=== PATIENT | male | born 2000 | race Caucasian/White ===

== ENCOUNTER 2025-02-26 06:06 | Day surgery (SDC) | payer OTHER ==
[2025-02-19 11:40] LABS: MEAN PLATELET VOLUME 8.1 FL (7.4-10.4); PRE OP HEMATOCRIT 48.6 % (42.0-52.0); PRE OP HEMOGLOBIN 17.0 g/dL (14.0-17.9); PRE OP PLATELET COUNT 251 X10'3 (140-440); PRE OP WHITE BLOOD COUNT 7.7 10'3 (4.8-10.8); RED CELL DISTRIBUTION WIDTH 12.8 % (11.5-14.5)
[2025-02-19 11:57] LABS: CREATININE 0.99 MG/DL (0.60-1.10); PRE OP ALT 72 U/L (30-65); PRE OP ANION GAP 9 (8-16); PRE OP AST 29 U/L (10-37); PRE OP GLUCOSE 101 MG/DL (70-104); PRE OP POTASSIUM 4.0 MMOL/L (3.4-5.1); PRE OP SODIUM 141 MMOL/L (135-145); TOTAL CARBON DIOXIDE 27.6 MMOL/L (24-32); eGFR > 90 ML/MIN
[2025-02-19 12:06] LABS: PRE OP BILIRUB, TOTAL 0.3 MG/DL (0.0-1.0)
[~2025-02-26] VITALS: Ht 182.9 cm; Wt 98.8 kg
[2025-02-26] VITALS (9 sets, daily range): BP systolic 135–157; BP diastolic 50–103; PULSE 74–98; RESP 12–23; TEMP 98.3; O2SAT 96–98
[~2025-02-26 06:06] MED LIST: NO HOME MEDS
[2025-02-26] MEDS: ringers solution, lacted 1,000 ML IV SCH (06:25)
[2025-02-26] MEDS: ceFAZolin 2gm/dext,iso 50mL 50 ML IV ONE (06:26)
[2025-02-26] MEDS ORDERED: BUPIVAcaine 2.5mg/ml inj 50ml vial (contains preservative) ONE (07:07)
[2025-02-26] MEDS ORDERED: LIDOcaine 1% 30ml preserv. free vial ONE (07:07)
[2025-02-26] MEDS ORDERED: BUPIVACAINE liposomal/PF 13.3 MG/ML 10mL vial IM ONE (07:08)
[2025-02-26] MEDS ORDERED: ringers solution, lacted 1,000 ML IV SCH (07:25)
[2025-02-26] MEDS ORDERED: labetalol 20mg/4ml (5mg/ml) syringe IV PRN (07:25)
[2025-02-26] MEDS ORDERED: morphine 4 MG/ML inj SYRINge IV PRN (07:25)
[2025-02-26] MEDS ORDERED: ondansetron/PF 4mg/2ml inj IV PRN (07:25)
[2025-02-26] MEDS ORDERED: fentaNYL/PF 50MCG/1 ML 2ML syringe IV PRN ×2 (07:25)
[2025-02-26] MEDS ORDERED: hydrALAZINE 20mg/ml inj. IV PRN (07:25)
[2025-02-26] MEDS ORDERED: midazolam 1 mg/ML 2ml injection ONE (08:46)
[2025-02-26] MEDS ORDERED: fentaNYL/PF 50MCG/1 ML 2ML syringe ONE (08:46)
[2025-02-26] MEDS ORDERED: acetaminophen 1,000mg/100ml IV 100 ML IV ONE (08:51)
[2025-02-26] MEDS ORDERED: rocuronium 10mg/ml inj IV ONE (09:00)
[2025-02-26] MEDS ORDERED: LIDOcaine 1%/PF 5ML 10 MG/ML VIAL ONE (09:01)
[2025-02-26] MEDS ORDERED: propofol inj 20 ML IV ONE (09:02)
[2025-02-26] MEDS ORDERED: glycopyrrolate 0.2mg/ml inj ONE (09:02)
[2025-02-26] MEDS ORDERED: ondansetron/PF 4mg/2ml inj ONE (09:03)
[2025-02-26] MEDS: BUPIVAcaine/PF 2.5 mg/ml (0.25%) 30ml vial IJ ONE (09:35)
[2025-02-26] MEDS ORDERED: HYDROcodone/acetaminophen 5mg/325mg tablet PO PRN (11:00)
--- NOTE | 2025-02-26 11:03 | OPERATIVE REPORT ---
Operative Report Providers to CC CC: ART VILLANUEVA MD ~ Date of Procedure: Feb 26, 2025 Pre-Operative Diagnosis: Right inguinal hernia, ventral hernia Post-Operative Diagnosis 1 cm ventral hernia Right inguinal hernia Procedure Performed 1 cm ventral hernia repair Robotic assisted, laparoscopic right inguinal hernia repair with mesh Surgeon: Art Villanueva MD FACS [employer] Operator None Anesthesiologist: Canelo Cisneros Type of Anesthesia: General Findings: 1 cm fascial defect along the superior margin of the umbilicus Direct and small indirect right inguinal hernia Wound class I Complications None Prosthetics\Implants used: Large right Dextile mesh Estimated Blood Loss: Minimal Specimen Removed: None Description of Procedure: Patient was brought to the operating room and identified by the nursing staff and the attending physician. Patient was placed supine and general anesthesia was induced. Patient's abdomen was prepped and draped in standard sterile fashion. Preoperative antibiotics were given. Supraumbilical incision was made to allow for standard Suero entry technique. During dissection, a small ventral hernia sac was encountered along the superior margin of the umbilicus. This was mobilized away and down to the level of the fascia, exposing a 1 cm defect that was used for the Suero port placement. Laparoscope was inserted after insufflation. Bilateral, 8.5 mm robotic trochars were placed under laparoscopic guidance following administration of local anesthetic. The da Sherice robotic arm was docked to the patient and instruments placed intra-abdominally under laparoscopic visualization. The left hemipelvis was examined and showed no evidence of left inguinal hernia. An indirect hernia was identified on the right side. Hernia sac was moderate in size. A rent was created in the peritoneum from the median umbilical fold and carried out laterally towards the anterior superior iliac spine. Preperitoneal flap was created and carried down to the symphysis pubis. The retropubic space of Retz[place] was developed and the bladder swept medially. Dissection was carried out laterally until a direct inguinal hernia was encountered and reduced. There was also an indirect hernia sac was identified. This was small in size. Hernia sac was completely dissected away from the cord structures and reduced. The critical view of the myopectineal orifice was achieved. Dissection was carried out laterally to allow space for mesh deployment. A large, Dextile mesh and suture was passed intra-abdominally. Mesh was laid in the preperitoneal space covering both indirect, direct, and potential femoral and obturator hernias. Mesh laid without wrinkles or folds. 3 tacking sutures using 0 Ethibond were used to fix the mesh at the symphysis pubis, rectus abdominis, and just anterior to the anterior superior iliac spine. The peritoneal rent was then closed with running, 2/0, absorbable locking suture. [place] were retrieved. Abdomen was deflated and secondary trochars removed. Fascia at the umbilical port site was closed with a combination of 0 Ethibond and 0 Vicryl sutures, thus repairing the small ventral hernia defect. Skin incisions were closed with 4-0 Monocryl sutures in a subcuticular fashion. Sterile dressings were applied. Patient was awakened and taken to the postanesthesia care unit in stable condition. Counts repoted as correct: Yes ART VILLANUEVA MD Feb 26, 2025 11:03
== END 2025-02-26 11:29 | disposition home or self-care (01) ==
LOC: PAS 06:06
PROVIDERS: ATTEND Surgery
DX: K40.90 Unilateral inguinal hernia, without obstruction or gangrene, not specified as recurrent (principal); K43.9 Ventral hernia without obstruction or gangrene; Z87.891 Personal history of nicotine dependence; Z79.891 Long term (current) use of opiate analgesic; Z83.3 Family history of diabetes mellitus; Z80.3 Family history of malignant neoplasm of breast; Z80.1 Family history of malignant neoplasm of trachea, bronchus and lung; Z80.0 Family history of malignant neoplasm of digestive organs; Z82.49 Family history of ischemic heart disease and other diseases of the circulatory system
CPT/HCPCS: 36415; 49591; 49650; 80053; 82948; 85025; C1781; J0131; J0666; J1100; J2003; J2250; J2405; J2704; J2710; J3010; J3490; J7030; J7120; S2900; Z7506; Z7508; Z7512; A4215; A4618